=== PATIENT | female | born 1985 | race Caucasian/White ===

== ENCOUNTER 2024-06-26 10:52 | Day surgery (SDC) | payer BC ==
[~2024-06-26] VITALS: Ht 170.2 cm; Wt 82.3 kg
[~2024-06-26 10:52] MED LIST: AMITRIPTYLINE H25 MG PO; CEFAZOLIN SODIUM 2 GM/20 ML SYR IV SCH; HEParin SOD (PORCINE) 5,000 UNIT/0.5 ML SYR SUB-Q SCH; HEParin SOD (PORCINE) 5,000 UNIT/ML SDV SUB-Q SCH; IBLOOD GLUCOSE TEST STRIP 1 EA TEST VI PRN; LACTATED RINGER'S 1,000 ML IV SCH; LIDOCAINE HCL 1% 5 ML SDV INJ ONE; MELOXICAM15 MG PO; SEVOFLURANE 250 ML BTL INH ONE; TYLENOL325 MG PO; XANAX0.25 MG PO; ZOLOFT100 MG PO
[2024-06-26 11:02] VITALS: BP 102/65
--- NOTE | 2024-06-26 11:23 | NUR ---
S O WILL LEAVE AND RETURN.
[2024-06-26] MEDS ORDERED: LIDOCAINE 1% W/ EPI 1:200,000 30 ML SDV ONE (13:39)
[2024-06-26] MEDS ORDERED: BUPIVACAINE HCL 0.25% 50 ML MDV ONE (13:39)
--- NOTE | 2024-06-26 13:53 | NUR ---
HAS BEEN UP TO BR. HAS BEEN UPDATED. WARM BLANKETS ON X 2 DURING WAIT. IV PATENT.
[2024-06-26] MEDS ORDERED: KETOROLAC TROMETHAMINE 30 MG/ML VIAL ONE (14:04)
[2024-06-26] MEDS ORDERED: fentaNYL citrate 100 MCG/2 ML VIAL ONE (14:04)
[2024-06-26] MEDS ORDERED: LIDOCAINE HCL 2% 5 ML SDV ONE (14:04)
[2024-06-26] MEDS ORDERED: propofoL 200 MG/20 ML VIAL ONE (14:04)
[2024-06-26] MEDS ORDERED: DEXAMETHASONE SOD PHOS 4 MG/ML VIAL ONE (14:04)
[2024-06-26] MEDS ORDERED: ondansetron HCL 4 MG/2 ML VIAL ONE (14:04)
[2024-06-26] MEDS ORDERED: GLYCOPYRROLATE 1 MG/5 ML MDV ONE (14:24)
--- NOTE | 2024-06-26 14:53 | NUR ---
06/26/24 1453 Nasra Toure 1745-PATIENT ARRIVED TO PACU ON RA RR EVEN. PATIENT AWAKE DROWSY DENIES PAIN OR NAUSEA. PATIENT ABLE TO REPOSTIION TO LEFT DRESSING INTACT ICE APPLIED. SR HR 70'S.
[2024-06-26] MEDS ORDERED: NALOXONE HCL 0.4 MG SYR IV PRN ×2 (15:00→15:30)
[2024-06-26] MEDS ORDERED: OXYCODONE HCL 5 MG TAB PO PRN (15:00)
[2024-06-26] MEDS ORDERED: HYDROmorphone HCL 1 MG/ML SYR IV PRN (15:00)
[2024-06-26 15:18] VITALS: BP 103/64
--- NOTE | 2024-06-26 15:26 | NUR ---
AT BS. STATES HE TALKED WITH DR. HO EATING CRACKERS.
[2024-06-26] MEDS ORDERED: ondansetron HCL 4 MG/2 ML VIAL IV PRN (15:30)
[2024-06-26] MEDS ORDERED: droPERidol 5 MG/2 ML VIAL IV PRN (15:30)
[2024-06-26] MEDS ORDERED: fentaNYL citrate 50 MCG/ML SDV IV PRN (15:30)
[2024-06-26] MEDS ORDERED: IBLOOD GLUCOSE TEST STRIP 1 EA TEST VI PRN (15:30)
[2024-06-26 16:17] VITALS: BP 101/61
--- NOTE | 2024-06-26 16:20 | NUR ---
STATES READY TO GO HOME. IS DRESSED.
--- NOTE | 2024-06-27 07:53 | OR ---
[facility] [address] [place], [place] [address] Signed DATE OF OPERATION: 06/26/2024 SURGEON: Peter Hernandez MD PREOPERATIVE DIAGNOSIS: 8 cm round right infrascapular subcutaneous mass. POSTOPERATIVE DIAGNOSIS: 8 cm round right infrascapular subcutaneous mass. PROCEDURE: Excision of right infrascapular subcutaneous mass. ESTIMATED BLOOD LOSS: None. INDICATIONS: Jolene is a 39-year-old female, who was asked to see me for subcutaneous mass just below the right scapula. It appears to be a lipoma. She said it has been there since her early 20s. It has been getting larger. She just finished breast-feeding her 4th child. She told me it was time to get the lipoma removed. It is causing issues with her bra and ability to set back in a chair while she is driving and so forth. She had been to her primary care provider. The ultrasound showed an 8.3 x 1.5 x 7.3 cm subcutaneous mass. I explained to her the nature of the incision required to remove that lesion. She understands this will be a day surgery. There is risk including, but not limited to bleeding, infection, scarring, change in contour of the skin as well as recurrent lipomas in the same or other locations. She had expressed understanding and wished to proceed. DESCRIPTION OF PROCEDURE: I met with Jolene in our preop area. Our nurse was with us. We both identified the lesion easily and marked it appropriately. After this, we took Jolene into the operating room and placed her in the left lateral decubitus position under general LMA anesthesia. She was given preoperative antibiotics along with subcutaneous heparin. SCDs were utilized. Appropriate padding was placed. She was then prepped and draped in the usual sterile fashion. A transverse incision was made over the lesion and carried down around the lesion bluntly and with the cautery. The entire lesion was removed. The operative field was injected with local anesthetic. The wound was irrigated and suctioned out until clear. We closed the skin and dermis with interrupted 3-0 subcuticular Monocryl sutures. The skin edges were reapproximated with a running 5-0 Electronically Signed By: PETER HERNANDEZ MD 06/27/24 0753 PATIENT NAME: JOLENE CREWS OPERATIVE REPORT DATE OF : 87 REPORT #: [id number] PHYSICIAN: PETER HERNANDEZ MD PCP: ALISON SANTOS MD REPORT IS CONFIDENTIAL AND NOT TO BE RELEASED WITHOUT AUTHORIZATION [facility] [address] [place] [id number] Signed fast absorbing plain gut suture. Dry gauze and tape was then applied. After this, Jolene was rotated into the supine position on her hospital bed, weaned from her anesthesia, extubated and taken to the recovery room in stable condition. MD FABY Sandhu/VINL /[id number] cc: MD Alison Sandhu MD Copies: PETER HERNANDEZ MD ~ Electronically Signed By: PETER HERNANDEZ MD 06/27/24 0753 PATIENT NAME: JOLENE CREWS LOVELACE OPERATIVE REPORT DATE OF : 87 REPORT #: [id number] PHYSICIAN: PETER HERNANDEZ MD PCP: ALIOSN SANTOS MD REPORT IS CONFIDENTIAL AND NOT TO BE RELEASED WITHOUT AUTHORIZATION
--- NOTE | 2024-06-28 11:03 | PATH ---
[facility] [address] [facility] [place], [place] [address] Signed SPECIMEN(S): A SUBCUTANEOUS MASS RT BACK SPECIMEN SOURCE: A. SUBCUTANEOUS MASS RT BACK CLINICAL HISTORY: Lipoma right mid back FINAL PATHOLOGIC DIAGNOSIS: Soft tissue, Rittenbach, excision: - Mature adipose tissue, clinically lipoma BRP MICROSCOPIC EXAMINATION: Histologic sections of all submitted blocks are examined by light microscopy. These findings, together with the gross examination, support the pathologic diagnosis. GROSS DESCRIPTION: The specimen, labeled and designated "Kaela Crews, subcutaneous mass right back," is received in formalin and consists of a 7.8 x 6.5 x 2.5 cm portion of yellow lobulated fibroadipose tissue. The outer surface is inked blue the specimen is serially section revealing a yellow homogenous cut surface. There are no discrete areas of hemorrhage or necrosis. Harmonic Analyst sections are submitted cassette A1. AA (under the direct supervision of a pathologist) The Gross Description was prepared using a voice recognition system. The report was reviewed for accuracy; however, sound-alike word errors, addition and/or deletions may occur. If there is any question about this report, please contact Client Services. ADDITIONAL NOTES: Immunohistochemical and/or in situ hybridization studies if performed in this case included appropriate positive controls that reacted as expected. This test was developed and its performance characteristics determined by [facility]. It has not been cleared or approved by the U.S. Food and Drug Administration. The FDA has determined that such clearance or approval is not necessary. This test is used for clinical purposes. It should not be regarded as investigational or for research. [facility] is certified under the PATIENT NAME: JOLENE CREWS PATHOLOGY DATE OF : [birth year] REPORT #: [id number] PHYSICIAN: MORGAN BURTON PCP: JUAN RAMON SANTOS MD REPORT IS CONFIDENTIAL AND NOT TO BE RELEASED WITHOUT AUTHORIZATION [facility] [address] [place], [place] [address] Signed Clinical Laboratory Improvement Amendments of 1988 (CLIA) as qualified to perform high complexity clinical laboratory testing. PERFORMING LABORATORY: Technical component was performed by [facility], [address] [place] [address] (CLIA# [id number]). [facility], [address] [address] (CLIA# [id number]). Diagnostician: Wagner Melgoza MD Pathologist Electronically Signed 06/28/2024 Copies: ~ PATIENT NAME: JOLENE CREWS PATHOLOGY DATE OF : [birth year] REPORT #: [id number] PHYSICIAN: MORGAN BURTON PCP: JUAN RAMON SANTOS MD REPORT IS CONFIDENTIAL AND NOT TO BE RELEASED WITHOUT AUTHORIZATION
== END 2024-06-26 16:20 | disposition home or self-care (01) ==
LOC: DS 10:52
PROVIDERS: ATTEND Colon & Rectal Surgery
PROC: 0JB70ZZ Excision of Back Subcutaneous Tissue and Fascia, Open Approach (ICD-10-PCS; principal; 2024-06-26 12:40)
DX: D17.1 Benign lipomatous neoplasm of skin and subcutaneous tissue of trunk (principal); Z88.8 Allergy status to other drugs, medicaments and biological substances; Z79.899 Other long term (current) drug therapy
CPT/HCPCS: 00300; A9270; J0690; J1100; J1644; J1885; J2003; J2405; J2704; J3010; J7121

== ENCOUNTER 2024-07-11 06:33 | Inpatient (IN) | payer BC ==
[~2024-07-11] VITALS: Ht 170.2 cm; Wt 86.3 kg
[2024-07-11] VITALS (17 sets, daily range): BP systolic 95–142; BP diastolic 61–740
[~2024-07-11 06:33] MED LIST changes: -CEFAZOLIN SODIUM 2 GM/20 ML SYR IV SCH; -HEParin SOD (PORCINE) 5,000 UNIT/0.5 ML SYR SUB-Q SCH; -HEParin SOD (PORCINE) 5,000 UNIT/ML SDV SUB-Q SCH; -IBLOOD GLUCOSE TEST STRIP 1 EA TEST VI PRN; -LACTATED RINGER'S 1,000 ML IV SCH; -LIDOCAINE HCL 1% 5 ML SDV INJ ONE; -SEVOFLURANE 250 ML BTL INH ONE
[2024-07-11 06:53] LABS: BILIRUBIN, URINE NEGATIVE (negative); BLOOD/HGB, URINE NEGATIVE (Negative); KETONE, URINE NEGATIVE (Negative); LEUK ESTERASE, URINE NEGATIVE (negative); NITRITE, URINE NEGATIVE (negative)
[2024-07-11 06:55] LABS: EOSINOPHILS 1.8 % (0-6); HEMATOCRIT 43.4 % (35.0-50.0); HEMOGLOBIN 14.9 g/dL (12.0-18.0); LYMPHOCYTES 41.1 % (24-44); MCH 30.7 (27-36); MCHC 34.2 g/dl (30-36); MCV 89.8 fl (81-99); MONOCYTES 7.2 % (0-12); NEUTROPHILS 48.9 % (39-80); PLATELET COUNT 270 K/uL (140-440); RBC 4.84 M/ul (4.3-5.7); RDW 12.7 (10.5-15.0)
[2024-07-11 07:05] LABS: PARTIAL THROMBOPLASTIN TIME 28.6 Sec (22.9-41.3)
[2024-07-11 07:06] LABS: AMPHETAMINES, URINE NEGATIVE (NEGATIVE); BARBITURATES, URINE NEGATIVE (NEGATIVE); BENZODIAZEPINE, URINE POSITIVE (NEGATIVE); BUPRENORPHINE, URINE NEGATIVE (NEGATIVE); CANNABINOID, URINE NEGATIVE (NEGATIVE); COCAINE, URINE NEGATIVE (NEGATIVE); ECSTASY, URINE NEGATIVE (NEGATIVE); FENTANYL, URINE NEGATIVE (NEGATIVE); INR 0.87 (0.80-1.30); METHADONE, URINE NEGATIVE (NEGATIVE); OPIATES, URINE NEGATIVE (NEGATIVE); OXYCODONE, URINE NEGATIVE (NEGATIVE); PHENCYCLIDINE, URINE NEGATIVE (NEGATIVE); PROTIME 11.8 Sec (11.2-14.2)
[2024-07-11 07:17] LABS: ACETAMINOPHEN 0 ug/mL (10-30); ALBUMIN/GLOBULIN RATIO 1.21 (1.1-2.4); ALCOHOL, MEDICAL 205 ng/dL (<3); ALKALINE PHOSPHATASE 79 U/L (46-116); ALT (SGPT) 45 U/L (14-59); ANION GAP 14.3 (7-21); AST (SGOT) 25 U/L (15-37); BILIRUBIN, TOTAL 0.2 ng/dL (0.2-1.0); BUN/CREATININE RATIO 9.83 (6.0-28.6); CALCIUM 8.5 mg/dL (8.5-10.1); CARBON DIOXIDE 27 mmol/L (21-32); CHLORIDE 106 mmol/L (98-107); CREATININE, SERUM 0.61 mg/dL (0.55-1.02); GLOMERULAR FILTRATION RATE,EST 117 mL/min (>60); MAGNESIUM 2.3 mg/dL (1.8-2.4); POTASSIUM 4.3 mmol/L (3.5-5.1); PROTEIN, TOTAL 7.3 g/dL (6.4-8.2); SALICYLATE 3.3 mg/dL (2.8-20.0); TSH, 3RD GENERATION 1.267 uIU/mL (0.358-3.740); UREA NITROGEN 6 mg/dL (7-18)
[2024-07-11] MEDS ORDERED: ALPRAZOLAM1 MG PO (08:03)
[2024-07-11] MEDS ORDERED: OXYCODONE HCL10 MG PO (08:03)
[2024-07-11] MEDS ORDERED: THIAMINE HCL 100 MG,FOLIC ACID 1 MG,MULTIVITAMINS 10 ML in SODIUM CHLORIDE 0.9% 1,000 ML IV ONE (11:15)
[2024-07-11] MEDS ORDERED: ondansetron HCL 4 MG/2 ML VIAL IV PRN (11:15)
[2024-07-11] MEDS ORDERED: LACTULOSE 10 GM/15 ML ML PR ONE (11:15)
[2024-07-11] MEDS ORDERED: LACTATED RINGER'S 1,000 ML IV SCH (11:15)
[2024-07-11] MEDS ORDERED: LORazepam 2 MG/ML VIAL IV/IM PRN (11:15)
[2024-07-11] MEDS ORDERED: bisacodyL 10 MG SUPP PR PRN (11:15)
[2024-07-11] MEDS ORDERED: ACETAMINOPHEN 325 MG TAB PO PRN (11:15)
[2024-07-11] MEDS ORDERED: PHARMACY RENAL DOSE ADJUSTMENT 1 DOSE MISC PO SCH (12:00)
--- NOTE | 2024-07-11 12:30 | NUR ---
REPORT RECIVED FROM SIMA HERR. PATIENT TRANSFERED WITH TRANSFER DEVICE. PATIENT REMAINS DROSWY ON ARRIVAL, BUT DID WAKE AND ASK FOR SANDWICH. UPDATED ON PLAN OF CARE. CALL LIGHT IN REACH. BED ALARM ON FOR SAFETY. PATIENT BACK TO SLEEP AT THSI TIME.
--- NOTE | 2024-07-11 13:32 | NUR ---
PATIENT UNABLE TO MEET WITH CASE MANAGEMENT. WILL TRY AT A LATER TIME.
--- NOTE | 2024-07-11 14:00 | NUR ---
PATIENTS IN TO CHECK ON PATIENT AND PLAN OF CARE REVIEWED. PATIENTS LEFT AND ASKED STFF TO CALL IF ANYTHING CHANGES. PATIENT HAS REMAIND SLEEPY AT THIS TIME.
--- NOTE | 2024-07-11 14:10 | NUR ---
REPORT RECEIVED FROM PREVIOUS RN ON DUTY. PATIENT RESTING IN BED. DIFFICULT TO ARROUSE HOWEVER WILL RESPOND TO TOUCH AND VOICE. IV FLUIDS HUNG. BED ALARM ON PLACE. CALL LIGHT WITHIN REACH.
--- NOTE | 2024-07-11 14:15 | NUR ---
REPORT GIVEN TO SAMIA RN. PATIENT MORE AWAKE WITH STAFF IN ROOM AND UPDATED ON PLAN OF CARE. UPDATED MD AND PER MD HOLD RECTAL ENEMA AND GIVE PO IF PATIENT CAN TOLERATE.
[2024-07-11] MEDS ORDERED: LACTULOSE 20 GM/30 ML CUP PO ONE (14:30)
[2024-07-11] MEDS ORDERED: SERTRALINE HCL50 MG PO (15:12)
[2024-07-11] MEDS ORDERED: TOPIRAMATE25 MG PO (15:14)
--- NOTE | 2024-07-11 15:27 | EKG ---
[facility] [address] [facility] [place], [place] [address] Signed Normal sinus rhythm Left axis deviation Abnormal ECG No previous ECGs available Confirmed by Corrie Holm DO ([id number]) on 07/11/2024 3:27:37 PM Electronically Signed By: CORRIE HOLM DO 07/11/24 1527 PATIENT NAME: JOLENE CREWS Electrocardiogram DATE OF : 87 PHYSICIAN: CORRIE HOLM DO REPORT #: [id number] REPORT IS CONFIDENTIAL AND NOT TO BE RELEASED WITHOUT AUTHORIZATION
--- NOTE | 2024-07-11 15:30 | NUR ---
PATIENT REQUESTING FOOD AND SOMETHING TO DRINK. JUICE, WATER AND SANDWHICH BOX GIVEN. PATIENT ABLE TO EAT WITH NO SWALLOWING DIFFICULTIES. OBSERVED POOR HAND TO MOUTH COURDNATION. PATIENT SCORED A CIWA OF 16 R/T INCREASED ANXIETY AND AGITATION. PATIENT ASSISTED TO BEDSIDE COMODE, THOUGH SHE WOULD NEED TO HAVE A BOWEL MOVEMENT. NO RESULTS OF A BOWEL MOVEMENT. TRANSFER WAS 1 PA MAX ASSIST.
--- NOTE | 2024-07-11 15:57 | NUR ---
UR CLINICAL REVIEW: SINDHU, MEETS GENERAL INPT ADMISSION CRITERIA [facility] INPT 07/11/2024 @ 1109 ORDER MATCHES REG AUTH PENDING. WILL SEND CLINICALS IF REQUESTED. PLAN TO DC TO HOME WHEN MEDICALLY STABLE 07/13/2024
--- NOTE | 2024-07-11 16:25 | NUR ---
PATIENT WITH AT BEDSIDE. ALERT AND ORIENTED X2. PATIENT IS UNAWARE OF HOW SHE TO THE HOSPITAL, PATIENT STATES, SHE " DOES NOT REMEMBER LAST NIGHT." LUNGS CTA, BOWEL TONES ACTIVE X 4. IV SITES WNL. IVF INFUSING WITH NO ISSUES OR CONCERNS. PATIENT RESTING IN BED WITH AT BEDSIDE. CALL LIGHT WITHIN REACH. BED ALARM ON.
--- NOTE | 2024-07-11 17:15 | NUR ---
PATIENT RESTING IN BED. RESPIRATIONS EVEN AND UNLABORED. CALL LIGHT WITHIN REACH. BED ALARM ON.
--- NOTE | 2024-07-11 18:00 | NUR ---
PATIENT ASSISTED TO BED SIDE COMODE WITH 1 PA ASSIST. TOLLERATED TRANSFER OKAY, PATIENT REPORTS SHE FEELS "WABBLY" WHEN TRANSFERING. PATIENT ABLE TO FOLLOW CUES DURING TRANSFER WELL. NOTED LARGE BM. PATIENT ASSISTED BACK INTO BED. DINNER GIVEN AND PATIENT EATING WELL. IV FLUIDS RUNNING WITH NO ISSUES OR CONCERNS. VSS. NOTED THAT PATIENT BECAME TACHY HR IN THE 130'S WHILE ON BEDSIDE COMODE. DENIES ANY CHEST PAIN OR DISCOMFRT AT THAT TIME. NO FURTHER NEEDS AT THIS TIME. CALL LIGHT WITHIN REACH.
--- NOTE | 2024-07-11 19:21 | NUR ---
ETCO2 NO LONGER ON JOLENE. NO O2 ON JOLENE.
--- NOTE | 2024-07-11 20:22 | NUR ---
SHIFT REPORT RECEIVED FROM CARMENZA SHULTZ. PATIENT IS DROWSY BUT WAKES TO NAME. CALL LIGHT IN REACH AND BED EXIT ALARM ON.
--- NOTE | 2024-07-11 20:30 | NUR ---
PATIENT WAKES TO NAME FOR ASSESSMENT. DROWSY THROUGHOUT BUT PARTICIPATES IN ASSESSMENT. MARTIN CATHETER NOTED TO BE LAYING IN BED. ASKED PATIENT IF SHE PULLED IT OUT, PATIENT DENIES PULLING IT AND STATED "IT HAS BEEN OUT SINCE I CAME BACK FROM CT". PATIENT DENIES PAIN TO URETHRA OR CONCERNS. SAFETY EDUCATION REVIEWED. BED ALARM ON FOR SAFETY. CALL LIGHT IN REACH. IVF INFUSING WITHOUT DIFFICULTY.
[2024-07-11] MEDS ORDERED: PANTOPRAZOLE SODIUM 40 MG TABEC PO SCH (21:00)
--- NOTE | 2024-07-11 22:30 | NUR ---
PATIENT RESTING WITH EYES CLOSED. RESPIRATIONS EVEN AND UNLABORED. O2 SAT 97% ON RA, RR 18, SINUS RHYTHM ON TELEMETRY HR 79.
[2024-07-12] VITALS (12 sets, daily range): BP systolic 81–117; BP diastolic 64–79
--- NOTE | 2024-07-12 00:06 | NUR ---
PATIENT WOKE TO NAME FOR ASSESSMENT. CIWA SCORES AT 2. PATIENT REPORTS HEADACHE HAS RESOLVED. DENIES NAUSEA AND ANXIETY. PATIENT MILDY AGITATED AT THIS RN'S INSISTENCE ON GETTING UP TO ATTEMPT TO VOID. HOWEVER, PATIENT AGREEABLE AND VOIDED 700 ML CLEAR YELLOW URINE. PATIENT REPORTED "VERTIGO" WHILE GETTING BACK IN BED. WHEN ASKED IF IT WAS NEW, SHE STATED "NO, I HAVE HAD IT SINCE I WAS 13". PATIENT REQUESTS SNACK; SANDWICH BOX PROVIDED. BED EXIT ALARM FOR SAFETY, CALL LIGHT IN REACH.
--- NOTE | 2024-07-12 01:17 | NUR ---
PATIENT RESTING IN BED WITH EYES CLOSED. REPOSITIONS INDEPENDENTLY IN BED. RESPIRATIONS EVEN AND UNLABORED; RR 20 WITH O2 SAT 95% ROOM AIR. CALL LIGHT IN REACH AND BED EXIT ALARM REMAINS ON FOR SAFETY.
--- NOTE | 2024-07-12 05:18 | NUR ---
PATIENT WAKES TO NAME AND LAB IN ROOM. BLOOD DRAWN. PATIENT TOLERATED WELL. PATIENT C/O 11/19 HEADACHE. MEDICATED WITH TYLENOL PER EMAR. CIWA SCORES AT 2. PATIENT DENIES OTHER NEEDS OR CONCERNS AT THIS TIME. FRESH WATER PROVIDED. CALL LIGHT IN REACH WITH BED EXIT ALARM ON.
[2024-07-12 05:21] LABS: BASOPHILS 2.1 % (0-2); EOSINOPHILS 2.3 % (0-6); HEMATOCRIT 36.3 % (35.0-50.0); HEMOGLOBIN 12.3 g/dL (12.0-18.0); LYMPHOCYTES 25.1 % (24-44); MCH 30.6 (27-36); MCV 89.8 fl (81-99); MONOCYTES 6.8 % (0-12); NEUTROPHILS 63.7 % (39-80); PLATELET COUNT 197 K/uL (140-440); RBC 4.04 M/ul (4.3-5.7); RDW 12.7 (10.5-15.0)
[2024-07-12 05:36] LABS: ALBUMIN 2.9 g/dL (3.4-5.0); ALBUMIN/GLOBULIN RATIO 1.16 (1.1-2.4); ANION GAP 10.7 (7-21); BILIRUBIN, TOTAL 0.4 ng/dL (0.2-1.0); BUN/CREATININE RATIO 7.5 (6.0-28.6); CALCIUM 7.8 mg/dL (8.5-10.1); CREATININE, SERUM 0.8 mg/dL (0.55-1.02); MAGNESIUM 1.8 mg/dL (1.8-2.4); PHOSPHORUS, INORGANIC 2.8 mg/dL (2.5-4.9); POTASSIUM 3.7 mmol/L (3.5-5.1); PROTEIN, TOTAL 5.4 g/dL (6.4-8.2)
--- NOTE | 2024-07-12 07:25 | NUR ---
REPORT RECEIVED FROM TRUCK ENGINE TECHNICIAN RN. PATIENT RESTING IN BED WITH EYES CLOSED. RESPIRATIONS EVEN AND UNLABORED. CALL LIGHT WITHIN REACH. BED ALARM IN PLACE.
[2024-07-12] MEDS ORDERED: CALCIUM CARBONATE 500 MG CHEW PO SCH (08:00)
--- NOTE | 2024-07-12 08:20 | NUR ---
Pt up to BR with RN standy by assist. Pt has steady gait, denies dizziness. Pt able to void 900ml yellow urine, tolerated well. Pt cleaned face at sink then ambulated back to bed with steady gait. PT sitting up in bed, using phone to call . Pt sitting up in bed on phone with , denies needs.
--- NOTE | 2024-07-12 08:50 | NUR ---
PATIENT RESTING IN BED, JUST FINISHED BREAKFAST. REPORTS SHE HAS A HEADACHE THAT IS A 4/10. REPORTS THIS HEADACHE IS CHRONIC. LUNGS CTA, DENIES ANY CHEST PAIN. HEART SOUNDS REGULAR. IV SITE WNL. IVF INFUSING WITH NO ISSUES OR CONCERNS. PATIENT DENIES ANY FURTHER NEEDS AT THIS TIME. CALL LIGHT WITHIN REACH.
--- NOTE | 2024-07-12 09:00 | NUR ---
INTO SEE PATIENT. ALERT AND ORIENTED. DAUGHTER SITTING ON BED AND AT BEDSIDE. PERSONAL INFORMATION REVIEWED. PATIENT LIVES AT HOME WITH FAMILY. 3 STEPS TO GET INTO RESIDENCE. STAIRS INSIDE. DENIES DIFFCULTY DOING THEM. PATIENT SAYS [employer] CAN MAKE IT DIFFCULTY TO GET OUT OF BED. DENIES ANY DME. PATIENT USES [facility]. CARDS GIVEN FOR [employer] AND [employer] FOR SUBSTANCE ABUSE. LET HER KNOW THESE ARE FREE RESOURCES. ALSO GAVE HER THE PAPERWORK FROM DR. HOLM ON [employer]. UNDERSTANING AND NO QUESITIONS FROM HER AT THIS TIME. TO TAKE HER HOME AT DISCHARGE. PATIENT HAS DIFFCULTY PAYING BILLS DUE TO HALF HER HUSBANDS INCOME GOES TO EX . LET THEM KNOW ABOUT [employer] AND THE [employer]. THEY ARE AWARE OF THERE OPTIONS. NO OTHER CASE MANAGEMENT NEEDS AT THIS TIME.
--- NOTE | 2024-07-12 09:15 | NUR ---
IN ROOM WITH PATIENT.
--- NOTE | 2024-07-12 09:46 | NUR ---
PATIENT RESTING IN BED WITH AND DAUGHTER AT BEDSIDE. CIWA COMPLETED SOCRED A CIWA OF 2 AT THIS TIME. PATIENT DENIES ANY FURTHER NEEDS AT THIS TIME. CALL LIGHT WITHIN REACH.
--- NOTE | 2024-07-12 10:28 | NUR ---
PATIENT AMBULATING TO BATHROOM WITH NO ISSUES OR CONCERNS. STEADY ON FEET. VOID IN TOILET QUANITY SUFFICIENT. BACK IN BED. DENIES ANY FURTHER NEEDS CALL LIGHT WITHIN REACH.
--- NOTE | 2024-07-12 10:42 | NUR ---
PATIENT REQUESTING PRN FOR C/O HEADACHE. PRN ADMINSTERED. PATIENT WITH NO FURTHER NEEDS. CALL LIGHT WITHIN REACH.
--- NOTE | 2024-07-12 11:13 | NUR ---
DC IV R AND l ARM WNL, VITALS WNL CHARTED, AND PT CALLED FOR SHIRT FOR DC TO HOME.
--- NOTE | 2024-07-12 11:45 | NUR ---
PATIENT DISCHARGED HOME WITH AND ALL PERSONAL BELONGINGS. DISCHARGE EDUCATIONS COMPLETED.
== END 2024-07-12 11:46 | disposition home or self-care (01) | DRG 922 ==
LOC: ED 06:33 → CCU 11:19
PROVIDERS: Internal Medicine; ADMIT Student in an Organized Health Care Education/Training Program; ATTEND Student in an Organized Health Care Education/Training Program
DX: T68.XXXA Hypothermia, initial encounter (principal); G93.41 Metabolic encephalopathy; G43.909 Migraine, unspecified, not intractable, without status migrainosus; F10.129 Alcohol abuse with intoxication, unspecified; F19.10 Other psychoactive substance abuse, uncomplicated; F32.9 Major depressive disorder, single episode, unspecified; F41.1 Generalized anxiety disorder; Y90.7 Blood alcohol level of 200-239 mg/100 ml; X31.XXXA Exposure to excessive natural cold, initial encounter; Z88.8 Allergy status to other drugs, medicaments and biological substances; Z79.891 Long term (current) use of opiate analgesic; Z79.899 Other long term (current) drug therapy
CPT/HCPCS: 36415; 70450; 71045; 80053; 80307; 81003; 82140; 82803; 83690; 83735; 84100; 84443; 84703; 85025; 85610; 85730; 93005; 93010; 94799; A9270; G0480; J2060; J3411; J7030; J7121